=== PATIENT | male | born 1955 | race Caucasian/White ===

== ENCOUNTER 2024-09-24 17:49 | Emergency (ER) | payer MEDICARE ==
[~2024-09-24] VITALS: Ht 165.1 cm; Wt 68.0 kg
[2024-09-24] MEDS ORDERED: IBUP-1490 PO (21:51)
[2024-09-24 22:12] VITALS: BP 135/75; TEMP 98; O2SAT 98
== END 2024-09-24 22:13 | disposition home or self-care (01) ==
LOC: ER 17:52
DX: S16.1XXA Strain of muscle, fascia and tendon at neck level, initial encounter (principal); S09.8XXA Other specified injuries of head, initial encounter; M25.512 Pain in left shoulder; M54.50 Low back pain, unspecified; R20.2 Paresthesia of skin; E03.9 Hypothyroidism, unspecified; E78.5 Hyperlipidemia, unspecified; Z88.0 Allergy status to penicillin; V43.52XA Car driver injured in collision with other type car in traffic accident, initial encounter; Y93.89 Activity, other specified; Y92.89 Other specified places as the place of occurrence of the external cause; Y99.8 Other external cause status
CPT/HCPCS: 70450-TC; 72125-TC; 72131-TC; 73030-TC